=== PATIENT | female | born 1965 | race Caucasian/White ===

== ENCOUNTER 2021-08-23 19:00 | Emergency (ER) | payer BC ==
[~2021-08-23] VITALS: Ht 165.1 cm; Wt 83.9 kg
[2021-08-23] MEDS ORDERED: LEXAPRO20 MG PO (19:22)
[2021-08-23] MEDS ORDERED: MOBIC15 MG PO (20:19)
== END 2021-08-23 20:39 | disposition home or self-care (01) ==
LOC: ED 19:00
DX: S93.401A Sprain of unspecified ligament of right ankle, initial encounter (principal); Z79.899 Other long term (current) drug therapy; X50.1XXA Overexertion from prolonged static or awkward postures, initial encounter; W18.30XA Fall on same level, unspecified, initial encounter; Y93.K1 Activity, walking an animal
CPT/HCPCS: 73130; 73610; 96372; 99283-25; J1885